=== PATIENT | female | born 1985 | race African-American/Black ===

== ENCOUNTER 2017-01-17 08:02 | Emergency (ER) | payer SELFPAY ==
[~2017-01-17 08:02] MED LIST: BACTRIM DS TABL1 TAB PO; CIPRO250 MG PO; COLACE-T100 MG PO; HYDROCODON-ACE1 EA16 PO; IBUPROFEN800 M1 PO; KEFLEX500 MG PO; MOTRIN800 MG PO; PERCOCET 5-3251 EACH PO; PERCOCET 5/3251 TAB PO; PRENA1 CHEW TA1.4 M1 PO; PRENATAL1 EACH PO; PYRIDIUM200 MG PO
[2017-01-17 08:39] LABS: BASO % 0.8 % (0-2); BASO ABSOLUTE COUNT 0.1 tho/cmm (0.0-0.2); EOSINOPHIL ABSOLUTE COUNT 0.3 tho/cmm (0.0-0.7); HCT-HEMATOCRIT 43.3 % (34.0-49.0); HGB-HEMOGLOBIN 14.1 gm/dl (12.0-15.5); IMMATURE GRANULOCYTES ABSOLUTE 0.01 tho/cmm (0-0.03); IMMATURE GRANULOCYTES PERCENT 0.1 % (0-0.3); LYMPH % 28.5 % (20-45); LYMPH ABSOLUTE COUNT 2.1 tho/cmm (0.8-4.5); MCH (MEAN CORPUSCULAR HGB) 28.5 pg (28.0-32.0); MCHC MEAN CORPUSCULAR HGB CONC 32.6 % (32.0-36.0); MCV (MEAN CELL VOLUME) 87.7 fl (82.0-96.0); MEAN PLATELET VOLUME 10.2 cmc (9.4-12.4); MONO % 9.6 % (0-12); MONOCYTE ABSOLUTE COUNT 0.7 tho/cmm (0.0-1.2); NEUTROPHIL ABSOLUTE COUNT 4.1 tho/cmm (1.6-8.0); NEUTROPHIL-AUTOMATED 4.1 tho/cmm (1.6-8.0); PLATELET COUNT 342 tho/cmm (150-450); RED BLOOD COUNT 4.94 mil/cmm (4.00-5.20); RED CELL DISTRIBUTION WIDTH 13.2 % (12.4-16.4); WHITE BLOOD COUNT 7.3 tho/cmm (4.0-10.0)
[2017-01-17 08:53] LABS: ANION GAP 11 mmol/L (0-20); BLOOD UREA NITROGEN 16 mg/dl (6-24); CALCIUM 8.4 mg/dl (8.5-10.5); CARBON DIOXIDE-VENOUS 25 mmol/L (22-32); CHLORIDE 110 mmol/l (96-110); CREATININE 0.57 mg/dl (0.50-1.10); GLUCOSE 89 mg/dL (70-110); SODIUM 142 mmol/L (135-145); eGFR VALUE FOR BLACK >90 mL/Min
[2017-01-17 09:09] LABS: PREGNANCY-SERUM NEGATIVE (NEGATIVE)
[2017-01-17] MEDS ORDERED: PERCOCET 5-3251 EACH PO (10:13)
[2017-01-17] MEDS ORDERED: IBUPROFEN600 M1 PO (10:13)
== END 2017-01-17 10:20 ==
LOC: EDMED 08:02
PROVIDERS: Emergency Medicine
DX: M94.0 Chondrocostal junction syndrome [Tietze] (principal); Z90.49 Acquired absence of other specified parts of digestive tract
CPT/HCPCS: J1885; J7030